=== PATIENT | male | born 1975 | race Hispanic/Latino ===

== ENCOUNTER 2020-07-23 07:47 | Emergency (ER) | payer BC | END 2020-07-23 09:58 | disposition home or self-care (01) | LOC: EDH 07:47 | DX: T84.197A Other mechanical complication of internal fixation device of bone of left lower leg, initial encounter (principal); M79.662 Pain in left lower leg; Y83.8 Other surgical procedures as the cause of abnormal reaction of the patient, or of later complication, without mention of misadventure at the time of the procedure; Y92.89 Other specified places as the place of occurrence of the external cause | CPT/HCPCS: 73590 ==

== ENCOUNTER 2020-07-24 04:55 | Observation (INO) | payer BC ==
[2020-07-24] VITALS (13 sets, daily range): BP systolic 93–129; BP diastolic 57–91
[2020-07-24 05:45] LABS: BASOPHILS % (AUTO) 0.5 % (0.0-5.0); EOSINOPHILS % (AUTO) 1.4 % (0.0-8.0); HEMATOCRIT 44.5 % (42-54); LYMPHOCYTES % (AUTO) 37.4 % (21.0-51.0); MEAN CORPUSCULAR HEMOGLOBIN 32.4 pg (27.0-33.0); MEAN CORPUSCULAR HGB CONC 33.7 g/dL (32.0-36.0); MEAN CORPUSCULAR VOLUME 96.1 fL (79-99); MONOCYTES % (AUTO) 8.6 % (3.0-13.0); NEUTROPHILS % (AUTO) 51.9 % (40.0-77.0); PLATELET COUNT (AUTO) 147 K/uL (130-400); RED BLOOD CELL COUNT(AUTO) 4.63 MIL/uL (4.50-6.20); RED CELL DISTRIBUTION WIDTH 12.7 % (11.0-15.5); WHITE BLOOD COUNT (AUTO) 5.8 K/uL (4.8-10.8)
[2020-07-24 05:54] LABS: POTASSIUM 4.1 mmol/L (3.5-5.1)
[2020-07-24] MEDS ORDERED: ONDANSETRON 4MG INJ IV PRN (06:00)
[2020-07-24] MEDS ORDERED: 0.9%NACL 1000ML 1,000 ML IV SCH (06:00)
[2020-07-24] MEDS ORDERED: ACETAMINOPHEN 325 MG TAB PO PRN ×2 (06:00)
[2020-07-24] MEDS ORDERED: MORPHINE 2 MG SYG IV PRN (06:00)
[2020-07-24] MEDS ORDERED: MORPHINE 4 MG SYG IV PRN (06:00)
[2020-07-24] MEDS ORDERED: NITROGLYCERIN 0.4 MG SL TAB SL PRN (06:00)
[2020-07-24 06:02] LABS: INR 0.95 (0.85-1.15); PROTHROMBIN TIME 10.2 SEC (9.6-11.6)
[2020-07-24 06:03] LABS: PARTIAL THROMBOPLASTIN TIME 25.1 SEC (26.3-35.5)
[2020-07-24] MEDS ORDERED: CEFAZOLIN SODIUM 1 GM VIAL ONE ×2 (06:19→15:38)
[2020-07-24] MEDS ORDERED: 0.9%NACL 50ML 50 ML IV ONE (06:19)
[2020-07-24] MEDS ORDERED: FAMOTIDINE 20MG VIAL IV SCH (09:00)
[2020-07-24] MEDS ORDERED: PHENYLEPHRINE HCL 10 MG/ML 1ML VIAL IV ONE (14:01)
[2020-07-24] MEDS ORDERED: SUCCINYLCHOLINE CHLORIDE 20 MG/ML 10 ML VIAL ONE (14:19)
[2020-07-24] MEDS ORDERED: LIDOCAINE PF 100MG/5ML (2%) SYRINGE 5ML ONE (14:19)
[2020-07-24] MEDS ORDERED: NEOSTIGMINE 5MG/5ML SYR IV ONE (14:20)
[2020-07-24] MEDS ORDERED: DEXAMETHASONE SOD PHOSPHATE 10MG/ML 1ML VIAL ONE (14:20)
[2020-07-24] MEDS ORDERED: PROPOFOL 10 MG/ML 20ML VIAL IV ONE ×2 (14:20→15:59)
[2020-07-24] MEDS ORDERED: GLYCOPYRROLATE 1 MG/5 ML SYRINGE ONE (14:20)
[2020-07-24] MEDS ORDERED: MIDAZOLAM HCL 1 MG/ML 2ML VIAL ONE (14:20)
[2020-07-24] MEDS ORDERED: ONDANSETRON 4MG INJ ONE (14:21)
[2020-07-24] MEDS ORDERED: ROCURONIUM 10MG/1ML SYR 10 MG/ML ML ONE (14:21)
[2020-07-24] MEDS ORDERED: FENTANYL CITRATE PF 50 MCG/1 ML 2ML VIAL ONE (14:22)
[2020-07-24] MEDS ORDERED: OXYMETAZOLINE HCL SPRAY 15 ML BOTTLE ONE (15:26)
== END 2020-07-24 18:05 | disposition home or self-care (01) ==
LOC: EDH 04:55 → EDHIP 05:58 → INTOOBSV 05:58 → EDHIP 18:05
PROVIDERS: ADMIT Internal Medicine; ATTEND Internal Medicine
DX: T84.127A Displacement of internal fixation device of bone of left lower leg, initial encounter (principal); Z20.828 Contact with and (suspected) exposure to other viral communicable diseases; Y83.8 Other surgical procedures as the cause of abnormal reaction of the patient, or of later complication, without mention of misadventure at the time of the procedure; Y93.89 Activity, other specified; Y92.89 Other specified places as the place of occurrence of the external cause
CPT/HCPCS: 20680; 36415; 73590 ×2; 80048; 85025; 85610; 85730; 86850; 86900; 86901; 87040 ×2; 87077; 87186; 87426; 93005; 99283; 99285; A4649; A6223; G0378 ×12; J0330; J0690 ×2; J1100; J2001; J2250; J2370; J2405; J2704 ×2; J2710; J3010; J3490; U0003